=== PATIENT | male | born 1990 | race Caucasian/White ===

== ENCOUNTER 2017-05-12 11:56 | Emergency (ER) | payer BC, MEDICAID ==
[~2017-05-12] VITALS: Ht 180.3 cm; Wt 79.5 kg
[2017-05-12 12:04] VITALS: BP 121/70
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
[2017-05-12] MEDS ORDERED: NEOMYCIN/POLYMYXIN/BACITRACIN 0.9 GM/1 PKT TP ONE (13:00)
--- NOTE | 2017-05-12 13:20 | NUR ---
Pt sitting comfortably in bed playing games on phone. Pt needs met at this time. Will continue to monitor.
[2017-05-12 14:44] VITALS: BP 118/68
--- NOTE | 2017-05-12 14:44 | NUR ---
Patient discharged with v/s stable. Written and verbal after care instructions given and explained. Patient alert, oriented and verbalized understanding of instructions. Ambulatory with steady gait. All questions addressed prior to discharge. ID band removed. Patient advised to follow up with PMD. Rx of Motrin & Keflex given. Patient educated on indication of medication including possible reaction and side effects. Opportunity to ask questions provided and answered.
== END 2017-05-12 14:44 | disposition home or self-care (01) ==
LOC: MED 11:56
DX: S41.112A Laceration without foreign body of left upper arm, initial encounter (principal); W45.8XXA Other foreign body or object entering through skin, initial encounter; Y93.89 Activity, other specified; Y92.89 Other specified places as the place of occurrence of the external cause; Y99.8 Other external cause status
CPT/HCPCS: 12001; 73060; 99284

== ENCOUNTER 2017-07-13 10:46 | Emergency (ER) | payer SELFPAY ==
[~2017-07-13] VITALS: Ht 180.3 cm; Wt 80.5 kg
[2017-07-13 10:49] VITALS: BP 142/97
--- NOTE | 2017-07-13 11:00 | NUR ---
PT AMBULATES TO BED 12
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
[2017-07-13] MEDS ORDERED: PENICILLIN G BENZATHINE L-A 1.2 MU/2 ML SYR IM ONE ×2 (11:35→12:00)
--- NOTE | 2017-07-13 11:42 | NUR ---
LAB AT BEDSIDE
--- NOTE | 2017-07-13 12:10 | NUR ---
PT APPEARS TO BE ON THE PHONE IN NO APPEARENT DISTRESS.
[2017-07-13 12:17] VITALS: BP 136/89
--- NOTE | 2017-07-13 12:17 | NUR ---
Patient discharged with v/s stable. Written and verbal after care instructions given and explained. Patient verbalized understanding. Ambulatory with steady gait. All questions addressed prior to discharge. Advised to follow up with PMD.
== END 2017-07-13 12:17 | disposition home or self-care (01) ==
LOC: MED 10:46
DX: Z20.2 Contact with and (suspected) exposure to infections with a predominantly sexual mode of transmission (principal)
CPT/HCPCS: 36415; 81002; 86592; 96372; 99283; J0561; 81025

== ENCOUNTER 2020-09-02 19:24 | Emergency (ER) | payer SELFPAY ==
[~2020-09-02] VITALS: Ht 180.3 cm; Wt 86.2 kg
[2020-09-02 19:30] VITALS: BP 140/96
[2020-09-02] MEDS ORDERED: AMOXIL/CLAVULANATE 875/125 MG 1 TAB PO ONE (20:50)
--- NOTE | 2020-09-02 20:51 | NUR ---
PT TAKEN TO BED 2
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
[2020-09-02] MEDS ORDERED: AMOX-1000 PO (21:50)
[2020-09-02] MEDS ORDERED: BACO TP (21:51)
[2020-09-02 22:30] VITALS: BP 135/89
== END 2020-09-02 22:30 | disposition home or self-care (01) ==
LOC: MED 19:24
DX: S60.511A Abrasion of right hand, initial encounter (principal); Y04.8XXA Assault by other bodily force, initial encounter; Y93.89 Activity, other specified; Y92.89 Other specified places as the place of occurrence of the external cause; Y99.8 Other external cause status
CPT/HCPCS: 73130; 90471; 90715; 99283